=== PATIENT | male | born 1955 ===

== ENCOUNTER 2016-10-01 00:05 | Emergency (ER) | payer MEDICAID, OTHER ==
[2016-10-01 00:06] VITALS: BMI 19.8
[2016-10-01] MEDS ORDERED: Oxycodone/Acetaminophen 5/325 mg Tab PO STA (01:10)
[2016-10-01 01:11] VITALS: PULSE 66
--- NOTE | 2016-10-01 01:57 | C.PDOC ---
Time Seen by Provider: 10/01/16 01:17 Chief Complaint (Nursing): Dental Pain Past Medical History Vital Signs: Last Vital Signs Temp 98.0 F 10/01/16 01:06 Pulse 66 10/01/16 01:06 Resp 16 10/01/16 01:06 BP 144/84 10/01/16 01:06 Pulse Ox 98 10/01/16 01:06 - Medical History PMH: Asthma, Back Problems, COPD, Diabetes (type II), GERD, HIV (undetectable viral load), HTN, Hypercholesterolemia, Chronic Pain (neck/back) Denies: Chronic Kidney Disease Surgical History: Appendectomy, Hernia Repair (abdominal) Family History: States: Unknown Family Hx - Social History Hx Tobacco Use: Yes Hx Alcohol Use: No Hx Substance Use: No (cocaine) - Immunization History Hx Tetanus Toxoid Vaccination: No Hx Influenza Vaccination: Yes Hx Pneumococcal Vaccination: Yes ED Course And Treatment O2 Sat by Pulse Oximetry: 98 Disposition Counseled Patient/Family Regarding: Diagnosis, Need For Followup - Disposition Referrals: [facility] at [facility] [Outside] Disposition: HOME/ ROUTINE Disposition Time: 01:30 Condition: STABLE Instructions: Chronic Back Pain (ED) Print Language: SLOVAK - Clinical Impression Clinical Impression: Chronic back pain
--- NOTE | 2016-10-01 01:59 | C.PDOC ---
History Of Present Illness A 61 year old male presents to the emergency room with complaints of chronic lower back pain and a medication refill request. Patient has ran out of Xanax and Percocet. Patient's last dose was yesterday at 15:00. Patient also requests evaluation of an intermittent right upper toothache for the last few days. Patient denies any fever, chills, drooling, trismus, any recent dental work, abdominal pain, nausea, vomiting, or any other complaints. Time Seen by Provider: 10/01/16 01:17 Chief Complaint (Nursing): Dental Pain History Per: Patient History/Exam Limitations: no limitations Onset/Duration Of Symptoms: Days (1 day) Current Symptoms Are (Timing): Still Present Severity: Mild Quality: Positive for: "Pain" Recent travel outside of the [place]: No Past Medical History Reviewed: Historical Data, Nursing Documentation, Vital Signs Vital Signs: Last Vital Signs Temp 97.9 F 10/01/16 02:33 Pulse 66 10/01/16 02:33 Resp 20 10/01/16 02:33 BP 165/89 H 10/01/16 02:33 Pulse Ox 97 10/01/16 02:33 - Medical History PMH: Asthma, Back Problems, COPD, Diabetes (type II), GERD, HIV (undetectable viral load), HTN, Hypercholesterolemia, Chronic Pain (neck/back) Denies: Chronic Kidney Disease Surgical History: Appendectomy, Hernia Repair (abdominal) Family History: States: Unknown Family Hx - Social History Hx Tobacco Use: Yes Hx Alcohol Use: No Hx Substance Use: No (cocaine) - Immunization History Hx Tetanus Toxoid Vaccination: No Hx Influenza Vaccination: Yes Hx Pneumococcal Vaccination: Yes Review Of Systems Constitutional: Positive for: Other (Requesting medication refill for Xanax and Percocet. ). Negative for: Fever, Chills ENT: Positive for: Mouth Pain (Dental pain) Gastrointestinal: Negative for: Vomiting, Abdominal Pain, Diarrhea Musculoskeletal: Positive for: Back Pain (Chronic lower back pain) Physical Exam - Physical Exam Appears: Well, Non-toxic Skin: Normal Color, Warm, Dry Head: Atraumatic, Normacephalic Oral Mucosa: Moist, No Drooling, No Trismus Tongue: Normal Appearing, No Swelling, No Bleeding Lips: Normal Appearing, No Swelling Teeth: No Normal Dentition (Poor Dentition. Poor dental hygiene.), Caries ( Right upper caries cavity. ) Gingiva: Normal Appearing, No Swelling, No Bleeding, No Abscess (No evidence of tooth abscess) Back: Paraspinal Tenderness (Diffuse paraspinal lumbar tenderness) Neurological/Psych: Oriented x3, Normal Speech, Normal Motor, Normal Sensation ED Course And Treatment O2 Sat by Pulse Oximetry: 98 Medical Decision Making Medical Decision Making: Plan: -- Percocet Disposition - Disposition Referrals: [facility] at [facility] [Outside] Disposition: HOME/ ROUTINE Condition: GOOD Instructions: Chronic Back Pain (ED) Print Language: LAO - Clinical Impression Clinical Impression: Chronic back pain - Scribe Statement The provider has reviewed the documentation as recorded by the Scribe Shayne Correa All medical record entries made by the Nathanaelibjack were at my direction and personally dictated by me. I have reviewed the chart and agree that the record accurately reflects my personal performance of the history, physical exam, medical decision making, and the department course for this patient. I have also personally directed, reviewed, and agree with the discharge instructions and disposition.
[2016-10-01] MEDS ORDERED: Oxycodone/Acetaminophen 5/325 mg Tab ONE (02:17)
[2016-10-01 02:37] VITALS: BP 165/89; RESP 20; TEMP 97.9
[2016-10-01 03:13] VITALS: O2SAT 98
== END 2016-10-01 02:33 | disposition home or self-care (01) ==
LOC: C.ER 00:05
DX: G89.29 Other chronic pain (principal); M54.5 Low back pain

== ENCOUNTER 2016-10-16 22:40 | Emergency (ER) | payer MEDICAID, OTHER ==
[2016-10-16 22:40] VITALS: BMI 19.8
[2016-10-16 22:51] VITALS: BP 115/77; PULSE 86; TEMP 97.6; O2SAT 97
--- NOTE | 2016-10-16 23:15 | C.PDOC ---
History Of Present Illness Patient is a 61 year old male who presents to the ER c/o right neck pain that radiates to the jaw and shoulder for the past 3 days. Patient reports that he has HIV, diabetes, and diffuse chronic musculoskeletal pain and is taking Tramadol po PRN that is not helping him now. Patient states he cannot sleep and denies any neuro deficit, weakness, or numbness. Time Seen by Provider: 10/16/16 22:54 Chief Complaint (Nursing): Medical Clearance History Per: Patient History/Exam Limitations: no limitations Onset/Duration Of Symptoms: Days (3) Current Symptoms Are (Timing): Still Present Past Medical History Reviewed: Historical Data, Nursing Documentation, Vital Signs Vital Signs: Last Vital Signs Temp 97.6 F 10/16/16 22:48 Pulse 86 10/16/16 22:48 Resp 20 10/17/16 00:47 BP 115/77 10/16/16 22:48 Pulse Ox 97 10/17/16 03:39 - Medical History PMH: Asthma, Back Problems, COPD, Diabetes (type II), GERD, HIV (undetectable viral load), HTN, Hypercholesterolemia, Chronic Pain (neck/back) Surgical History: Appendectomy, Hernia Repair (abdominal) Family History: States: Unknown Family Hx - Social History Hx Tobacco Use: Yes Hx Alcohol Use: No Hx Substance Use: No (cocaine) - Immunization History Hx Tetanus Toxoid Vaccination: No Hx Influenza Vaccination: Yes Hx Pneumococcal Vaccination: Yes Review Of Systems Except As Marked, All Systems Reviewed And Found Negative. Constitutional: Negative for: Fever, Chills Cardiovascular: Negative for: Palpitations Respiratory: Negative for: Cough, Shortness of Breath Gastrointestinal: Negative for: Nausea, Vomiting, Diarrhea Musculoskeletal: Positive for: Neck Pain (Right sided) Neurological: Negative for: Weakness, Numbness Physical Exam - Physical Exam Appears: Well, Non-toxic Skin: Normal Color, Warm, Dry Head: Atraumatic, Normacephalic Oral Mucosa: Moist Neck: Other (Right lateral tenderness) Chest: Symmetrical Cardiovascular: Rhythm Regular Respiratory: Normal Breath Sounds, No Rales, No Rhonchi, No Wheezing Gastrointestinal/Abdominal: Soft, No Tenderness Neurological/Psych: Oriented x3, Normal Speech, Normal Cognition ED Course And Treatment O2 Sat by Pulse Oximetry: 97 (Room air) Pulse Ox Interpretation: Normal - Other Rad C-spine xray X-Ray: Interpreted by Me Interpretation: DJD, no acute abnormalities Progress Note: Percocet PO and toradol IM administered. Cervical spine x-ray ordered. Disposition - Disposition Referrals: Andriy Us MD [Medical Doctor] - Disposition: HOME/ ROUTINE Disposition Time: 00:06 Condition: STABLE Additional Instructions: Follow up with PMD within 1-2 days. Return to ED if feel worse. Prescriptions: oxyCODONE/Acetaminophen [Percocet 5/325 mg Tab] 1 tab PO QID PRN #20 tab PRN Reason: Pain Instructions: Muscle Spasm (ED) - Clinical Impression Clinical Impression: Cervical radiculopathy - Scribe Statement The provider has reviewed the documentation as recorded by the Scribe Marques Trivedi All medical record entries made by the Nathanaelibe were at my direction and personally dictated by me. I have reviewed the chart and agree that the record accurately reflects my personal performance of the history, physical exam, medical decision making, and the department course for this patient. I have also personally directed, reviewed, and agree with the discharge instructions and disposition.
[2016-10-17] MEDS ORDERED: Oxycodone/Acetaminophen 5/325 mg Tab PO STA (00:05)
[2016-10-17] MEDS ORDERED: Oxycodone/Acetaminophen 5/325 mg Tab ONE (00:12)
[2016-10-17 00:48] VITALS: RESP 20
--- NOTE | 2016-10-17 09:04 | RAD ---
PROCEDURE: Cervical Spine Radiographs. HISTORY: Pain COMPARISON: None. FINDINGS: BONES: Vertebral bodies are maintained height. The transverse processes and posterior elements appear intact. The atlantoaxial articulation and odontoid process appear intact. There is grade 1 retrolisthesis at C2-3, likely degenerative in origin. DISC SPACES: There is marked narrowing of the C5-6 intervertebral disc space with osteophytes noted about the disc space, consistent with degenerative disc disease. The remaining intervertebral disc spaces are maintained in height. SOFT TISSUES: Normal. No prevertebral soft tissue swelling. OTHER FINDINGS: None. IMPRESSION: Degenerative disc disease C5-6. Grade 1 retrolisthesis C2-3, likely degenerative in origin. No evidence of fracture.
== END 2016-10-17 00:47 | disposition home or self-care (01) ==
LOC: C.ER 22:40
DX: M54.12 Radiculopathy, cervical region (principal)
CPT/HCPCS: 72040; 96372; 99282; J1885

== ENCOUNTER 2016-11-08 20:03 | Emergency (ER) | payer MEDICAID, OTHER ==
[2016-11-08 20:03] VITALS: BMI 19.8
[2016-11-08 20:58] VITALS: BP 107/73; PULSE 70; RESP 20; TEMP 97.6; O2SAT 99
--- NOTE | 2016-11-08 21:32 | C.PDOC ---
Time Seen by Provider: 11/08/16 21:31 Chief Complaint (Nursing): Headache Past Medical History Vital Signs: Last Vital Signs Temp 97.6 F 11/08/16 20:53 Pulse 70 11/08/16 20:53 Resp 20 11/08/16 20:53 BP 107/73 11/08/16 20:53 Pulse Ox 99 11/08/16 20:53 - Medical History PMH: Asthma, Back Problems, COPD, Diabetes (type II), GERD, HIV (undetectable viral load), HTN, Hypercholesterolemia, Chronic Pain (neck/back) Denies: Chronic Kidney Disease Surgical History: Appendectomy, Hernia Repair (abdominal) Family History: States: Unknown Family Hx - Social History Hx Tobacco Use: Yes Hx Alcohol Use: No Hx Substance Use: No (cocaine) - Immunization History Hx Tetanus Toxoid Vaccination: No Hx Influenza Vaccination: Yes Hx Pneumococcal Vaccination: Yes ED Course And Treatment O2 Sat by Pulse Oximetry: 99 Disposition Counseled Patient/Family Regarding: Studies Performed, Diagnosis - Disposition Disposition Time: 21:32
== END 2016-11-08 22:40 | disposition left against medical advice (07) ==
LOC: C.ER 20:03
DX: R51 Headache (principal); Z02.9 Encounter for administrative examinations, unspecified

== ENCOUNTER 2016-11-09 13:44 | Emergency (ER) | payer OTHER ==
[2016-11-09 13:45] VITALS: BMI 19.8
[2016-11-09 13:55] VITALS: O2SAT 98
[2016-11-09] MEDS ORDERED: Sodium Chloride 0.9% 1,000 ML IV ONE (14:19)
--- NOTE | 2016-11-09 14:33 | C.PDOC ---
History Of Present Illness A 61 year old male presents to the ED c/o Abdominal discomfort and watery diarrhea that occurred this morning. He has no nausea or vomitng. Patient notes having a syncopal fall that occurred 2 days prior where he hit his head feeling dizzy. He was seen at [facility] and had a CT head, X-Ray of the neck, and they stapled his head wounds, but the patient then left AMA. Patient reports coming to [facility] ED yesterday because of neck pain but left before being seen. Patient denies fever, chills, vomiting, nausea, SOB, or any other complaints. Time Seen by Provider: 11/09/16 14:05 Chief Complaint (Nursing): Headache History Per: Patient History/Exam Limitations: other (Poor historian) Onset/Duration Of Symptoms: Hrs, Days Current Symptoms Are (Timing): Still Present Severity: Mild Quality: "Pain" Recent travel outside of the [place]: No Past Medical History Reviewed: Historical Data, Nursing Documentation, Vital Signs Vital Signs: Last Vital Signs Temp 97.7 F 11/09/16 16:00 Pulse 62 11/09/16 16:00 Resp 14 11/09/16 16:00 BP 132/73 11/09/16 16:00 Pulse Ox 98 11/09/16 16:00 - Medical History PMH: Asthma, Back Problems, COPD, Diabetes (type II), GERD, HIV (undetectable viral load), HTN, Hypercholesterolemia, Chronic Pain (neck/back) Denies: Chronic Kidney Disease Surgical History: Appendectomy, Hernia Repair (abdominal) Family History: States: Unknown Family Hx - Social History Hx Tobacco Use: Yes Hx Alcohol Use: No Hx Substance Use: No (cocaine) - Immunization History Hx Tetanus Toxoid Vaccination: No Hx Influenza Vaccination: Yes Hx Pneumococcal Vaccination: Yes Review Of Systems Except As Marked, All Systems Reviewed And Found Negative. Constitutional: Negative for: Fever, Chills Respiratory: Negative for: Shortness of Breath Gastrointestinal: Positive for: Abdominal Pain, Diarrhea (Watery ). Negative for: Nausea, Vomiting Musculoskeletal: Positive for: Neck Pain Neurological: Positive for: Headache. Negative for: Weakness, Numbness, Incoordination, Altered Mental Status Physical Exam - Physical Exam Appears: Non-toxic, No Acute Distress Skin: Warm, Dry Head: Tenderness, No Swelling, Laceration (at top of scalp, stapled closed. No surrounding erythema or tenderness. No hematoma), No Other Eye(s): right: Other (Cataracts of the right iris), left: Normal Inspection Oral Mucosa: Moist Neck: Normal ROM, No Decreased ROM, No Midline Cervical Tenderness, Paracervical Tenderness (bilaterally) Cardiovascular: Rhythm Regular, No Murmur Respiratory: Normal Breath Sounds, No Rales, No Rhonchi, No Wheezing Gastrointestinal/Abdominal: Soft, Tenderness (Diffuse tenderness), No Distention , No Guarding, No Rebound Extremity: Bilateral: Atraumatic Pulses: Left Carotid: Normal, Right Carotid: Normal Neurological/Psych: Oriented x3, Normal Speech, Normal Cognition, Normal Cranial Nerves, Normal Motor, Normal Sensation, Normal Reflexes ED Course And Treatment - Laboratory Results Result Diagrams: 11/09/16 14:30 11/09/16 14:30 Lab Interpretation: No Acute Changes ECG: Interpreted By Me ECG Rhythm: Sinus Rhythm (with diffuse low voltage, Q waves V1-2 ? age anteroseptal infarct) O2 Sat by Pulse Oximetry: 98 (Room air) Pulse Ox Interpretation: Normal Reevaluation Time: 16:34 Reassessment Condition: Improved (Patient feels better and is without complaints.) Medical Decision Making Medical Decision Making: Plans: -EKG -Blood labs -IV fluids -Urine labs -Reassess and disposition Disposition - Disposition Referrals: Lalitha Lemus MD [Resident] - Disposition: HOME/ ROUTINE Disposition Time: 16:35 Condition: IMPROVED Prescriptions: Ondansetron ODT [Zofran ODT] 1 odt PO QID PRN #10 odt PRN Reason: Nausea/Vomiting traMADol [Ultram] 50 mg PO TID PRN #10 tab PRN Reason: Pain, Severe (8-10) Instructions: Acute Diarrhea (ED), Musculoskeletal Pain (ED) Print Language: BERMUDIAN - Clinical Impression Clinical Impression: Diarrhea, Musculoskeletal pain - Scribe Statement The provider has reviewed the documentation as recorded by the Scribjack healy All medical record entries made by the Scribe were at my direction and personally dictated by me. I have reviewed the chart and agree that the record accurately reflects my personal performance of the history, physical exam, medical decision making, and the department course for this patient. I have also personally directed, reviewed, and agree with the discharge instructions and disposition.
[2016-11-09 14:40] LABS: BASO % 0.9 % (0.0-2.0); EOS % 0.7 % (0.0-4.0); LYMPH # 0.9 K/uL (1.0-4.3); LYMPH % 23.1 % (20.0-40.0); MEAN CELL VOLUME 89.1 fL (80.0-94.0); MEAN CORPUSCULAR HEMOGLOBIN 29.9 pg (27.0-31.0); MEAN CORPUSCULAR HGB CONC 33.5 g/dL (33.0-37.0); MEAN PLATELET VOLUME 8.2 fL (7.2-11.7); MONO # 0.4 K/uL (0.0-0.8); MONO % 9.7 % (0.0-10.0); RED CELL DISTRIBUTION WIDTH 13.4 % (11.5-14.5); WHITE BLOOD COUNT 3.7 K/uL (4.8-10.8)
[2016-11-09 15:07] LABS: CHLORIDE 102 mmol/L (98-107)
[2016-11-09 15:08] LABS: POTASSIUM 4.3 mmol/L (3.6-5.2); SODIUM 138 mmol/L (132-148)
[2016-11-09 15:10] LABS: ALB/GLOB RATIO 1.3 (1.0-2.1); AST/SGOT 34 U/L (17-59); BILIRUBIN,TOTAL 0.8 mg/dL (0.2-1.3); CARBON DIOXIDE 25 mmol/L (22-30); GFR AFRICAN-AMERICAN > 60; TOTAL PROTEIN 7.1 g/dL (6.3-8.3)
[2016-11-09 15:11] LABS: ALKALINE PHOSPHATASE 64 U/L (38-126); BLOOD UREA NITROGEN 22 mg/dL (9-20); CALCIUM 9.1 mg/dl (8.6-10.4); GLUCOSE,RANDOM 77 mg/dL (75-110)
[2016-11-09 15:20] LABS: ALT/SGPT 6 U/L (21-72)
[2016-11-09 15:33] LABS: RBC URINE 1 /hpf (0-3); URINE BILIRUBIN NEGATIVE (NEGATIVE); URINE BLOOD NEGATIVE (NEGATIVE); URINE COLOR Yellow (YELLOW); URINE GLUCOSE (UA) NORMAL (Normal); URINE KETONE NEGATIVE (NEGATIVE); URINE LEUKOCYTE ESTERASE NEG Leu/uL (Negative); URINE PROTEIN NEGATIVE (NEGATIVE); URINE UROBILINOGEN NORMAL mg/dL (0.2-1.0); WBC URINE < 1 /hpf (0-5)
[2016-11-09 16:00] VITALS: BP 132/73; PULSE 62; RESP 14; TEMP 97.7
--- NOTE | 2016-11-10 19:00 | CARD ---
APPROVED REPORT EKG Measurement Heart [id number] <Conclusion> Normal sinus rhythm Low voltage QRS Poor R wave progression. Cannot rule out Anteroseptal infarct, age undetermined Abnormal ECG
== END 2016-11-09 16:46 | disposition home or self-care (01) ==
LOC: C.ER 13:44
DX: R19.7 Diarrhea, unspecified (principal); M79.1 Myalgia
CPT/HCPCS: 80053; 81001; 85025; 93005; 96360; 99285; J7040

== ENCOUNTER 2016-11-29 13:27 | Emergency (ER) | payer MEDICAID, OTHER ==
[2016-11-29 13:27] VITALS: BMI 19.8
[2016-11-29 13:48] VITALS: RESP 18; TEMP 98.2
[2016-11-29] MEDS ORDERED: Bacitracin 500 Units/gm Oint Foilpak UD TOP ONE (14:14)
[2016-11-29] MEDS ORDERED: Bacitracin 500 Units/gm Oint Foilpak UD ONE (14:17)
--- NOTE | 2016-11-29 14:37 | C.PDOC ---
History Of Present Illness 61 yr old male presents to the ER for staple removal, placed 10 days ago. Patient is also requesting refill of Albuterol, Advair and perococet. Patient denies fever, vision changes, nausea, vomiting, neck pain, headache, weakness or numbness. Time Seen by Provider: 11/29/16 14:05 Chief Complaint (Nursing): Med Refill History Per: Patient History/Exam Limitations: no limitations Onset/Duration Of Symptoms: Days (10) Past Medical History Reviewed: Historical Data, Nursing Documentation, Vital Signs Vital Signs: Last Vital Signs Temp 98.2 F 11/29/16 13:45 Pulse 72 11/29/16 15:01 Resp 18 11/29/16 15:01 BP 102/62 11/29/16 15:01 Pulse Ox 97 11/29/16 18:05 - Medical History PMH: Asthma, Back Problems, COPD, Diabetes (type II), GERD, HIV (undetectable viral load), HTN, Hypercholesterolemia, Chronic Pain (neck/back) Surgical History: Appendectomy, Hernia Repair (abdominal) Family History: States: No Known Family Hx - Social History Hx Tobacco Use: Yes Hx Alcohol Use: No Hx Substance Use: No (cocaine) - Immunization History Hx Tetanus Toxoid Vaccination: No Hx Influenza Vaccination: Yes Hx Pneumococcal Vaccination: Yes Review Of Systems Except As Marked, All Systems Reviewed And Found Negative. Constitutional: Negative for: Fever Eyes: Negative for: Vision Change Gastrointestinal: Negative for: Nausea, Vomiting Musculoskeletal: Negative for: Neck Pain Neurological: Negative for: Weakness, Numbness, Headache Physical Exam - Physical Exam Appears: Well, Non-toxic, No Acute Distress Skin: Warm, Dry, No Rash Head: Atraumatic, Normacephalic, Other (Well healed wound to the parietal scalp , with kaci in place. No signs of infections. ) Eye(s): bilateral: Normal Inspection, PERRL, EOMI Oral Mucosa: Moist Neck: Normal, Normal ROM, No Supple Chest: Symmetrical, No Tenderness Cardiovascular: Rhythm Regular, No Murmur Respiratory: Normal Breath Sounds, No Rales, No Rhonchi, No Stridor, No Wheezing Extremity: Normal ROM, No Swelling Neurological/Psych: Oriented x3, Normal Speech, Normal Motor, Normal Sensation ED Course And Treatment O2 Sat by Pulse Oximetry: 97 Medical Decision Making Medical Decision Making: PLAN: * Tylenol PO NOTE" Kaci were removed by SHARA Bowman without difficulty and well tolerated by patient. BAcitracin and sterile dressing placed. The patient was instructed that as the [facility] pain policy we cannot refill narcotic pain medications and patient is aware. Disposition - Disposition Referrals: [facility] at [facility] [Outside] Disposition: HOME/ ROUTINE Disposition Time: 14:35 Condition: GOOD Additional Instructions: Follow up with the medical doctor within 1-2 days without fail. Return if worsened. Prescriptions: Albuterol HFA [Ventolin HFA 90 mcg/actuation (8 g)] 2 puff IH Q6 #1 inhaler Fluticasone/Salmeterol 500/50 [Advair Diskus] 1 dsk IH BID #100 puff Instructions: Acute Wound Care (ED) Print Language: NEPALESE - Clinical Impression Clinical Impression: Removal of suture, Review of medication, Medication refill - PA / WHITE WORK CLEANER / Resident Statement MD/DO has reviewed & agrees with the documentation as recorded. - Scribe Statement The provider has reviewed the documentation as recorded by the Scribe All medical record entries made by the Scribe were at my direction and personally dictated by me. I have reviewed the chart and agree that the record accurately reflects my personal performance of the history, physical exam, medical decision making, and the department course for this patient. I have also personally directed, reviewed, and agree with the discharge instructions and disposition.
[2016-11-29 15:02] VITALS: BP 102/62; PULSE 72
[2016-11-29 18:03] VITALS: O2SAT 97
== END 2016-11-29 15:05 | disposition home or self-care (01) ==
LOC: C.ER 13:27
DX: Z48.02 Encounter for removal of sutures (principal); Z76.0 Encounter for issue of repeat prescription

== ENCOUNTER 2017-12-26 13:52 | Emergency (ER) | payer MEDICAID, OTHER ==
[2017-12-26 13:53] VITALS: BMI 19.8
[2017-12-26 14:18] VITALS: BP 119/69; PULSE 67; RESP 20; TEMP 98.7; O2SAT 98
--- NOTE | 2017-12-26 14:52 | C.PDOC ---
History Of Present Illness 62 year old male, whose PMHx includes lower back pain and asthma, presents to the ED for evaluation of right-sided lower back pain that radiates down his right leg which developed over the past few days. Patient describes pain as aching, worse with movement. Similar sx in past and c/w " my usual lower back pain". Patient is also requesting a refill of Advair. Patient denies fever, chills, known trauma or injury, denies CP, SOB, dyspnea, palpitation, wheezing, cough, abdominal pain, UTI symptoms, urinary/bowel incontinence, extremity numbness/weakness, saddle anesthesia. Ambulate to Ed for evaluation, not in any apparent distress. Time Seen by Provider: 12/26/17 14:33 Chief Complaint (Nursing): Back Pain History Per: Patient History/Exam Limitations: clinical condition Onset/Duration Of Symptoms: Days Current Symptoms Are (Timing): Still Present Quality Of Discomfort: "Pain" Previous Symptoms: Back Pain Associated Symptoms: denies: Incontinence, New Weakness, New Numbness Additional History Per: Patient Past Medical History Reviewed: Historical Data, Nursing Documentation, Vital Signs Vital Signs: Last Vital Signs Temp 98.7 F 12/26/17 14:16 Pulse 67 12/26/17 14:16 Resp 20 12/26/17 14:16 BP 119/69 12/26/17 14:16 Pulse Ox 98 12/26/17 16:05 - Medical History PMH: Asthma, Back Problems, COPD, Diabetes (type II), GERD, HIV (undetectable viral load), HTN, Hypercholesterolemia, Chronic Pain (neck/back) Denies: Chronic Kidney Disease Surgical History: Appendectomy, Hernia Repair (abdominal) Family History: States: Unknown Family Hx - Social History Hx Tobacco Use: Yes Hx Alcohol Use: No Hx Substance Use: No (cocaine) - Immunization History Hx Tetanus Toxoid Vaccination: No Hx Influenza Vaccination: Yes Hx Pneumococcal Vaccination: Yes Review Of Systems Constitutional: Negative for: Fever, Chills Gastrointestinal: Negative for: Nausea, Vomiting Genitourinary: Negative for: Dysuria, Frequency, Hematuria Musculoskeletal: Positive for: Back Pain, Leg Pain (right) Neurological: Negative for: Weakness, Numbness Physical Exam - Physical Exam Appears: Well, Non-toxic, No Acute Distress Skin: Normal Color, Warm, Dry, No Rash Head: Normacephalic Eye(s): bilateral: PERRL Nose: No Discharge Oral Mucosa: Moist Neck: Trachea Midline, Supple Cardiovascular: Rhythm Regular, No Murmur Respiratory: No Decreased Breath Sounds, No Accessory Muscle Use, No Stridor, No Wheezing Gastrointestinal/Abdominal: Soft, No Tenderness, No Distention, No Guarding, No Rebound Back: No CVA Tenderness, Muscle Spasm (Right lumbar paraspinal), Paraspinal Tenderness (Right lumbar) Extremity: No Tenderness, No Calf Tenderness (B/L), No Deformity, No Swelling Neurological/Psych: Oriented x3, Normal Speech, Normal Motor, Normal Sensation, Normal Reflexes ED Course And Treatment O2 Sat by Pulse Oximetry: 98 (on RA) Pulse Ox Interpretation: Normal Progress Note: Motrin PO and Neurontin PO administered. On re-evaluation, pt is afebrile, hemodynamicaly stable. Non-toxic. Ambulatory in ED with stable gait. ENT: no acute findings. neck: Supple, (-) meningeal sign. Lungs: CTA B/ L, BS equal B/L. Abd: benign, (-) guarding, (-) rebound. back: (-) CVA tenderness. neurologicaly intact. Pt has clinical findings c/w Right lumbar radiculopathy. Hx of asthma, medication refill. pt advised. ref. to f/u with PMD in 2-3 days for re-eval. return to ED if any worsening or new changes. Disposition Counseled Patient/Family Regarding: Diagnosis, Need For Followup, Rx Given - Disposition Referrals: [facility] at [facility] [Outside] Disposition: HOME/ ROUTINE Disposition Time: 14:58 Condition: STABLE Additional Instructions: Light duty to lower back, avoid heavy lifting, bending , etc. Take medication as prescribed Follow up with PMD in 2-3 days for re-evaluation. return to ED if any worsening or new changes. Prescriptions: Fluticasone/Salmeterol 250/50 [Advair Diskus] 1 puff IH Q12 #1 puff Gabapentin [Neurontin] 300 mg PO BID #20 cap Methocarbamol [Robaxin] 500 mg PO TID #20 tab traMADol [Ultram] 50 mg PO TID #7 tab Instructions: Asthma, Adult (DC), Radiculopathy (DC) Forms: [employer] (Vietnamese) Print Language: DJIBOUTIAN - Clinical Impression Clinical Impression: Low back pain, Lumbar radiculopathy, Medication refill, Asthma - PA / CONTRACT ADMINISTRATIVE ASSISTANT / Resident Statement MD/DO has reviewed & agrees with the documentation as recorded. - Scribe Statement The provider has reviewed the documentation as recorded by the Scribe (Bren Muller) All medical record entries made by the Scribe were at my direction and personally dictated by me. I have reviewed the chart and agree that the record accurately reflects my personal performance of the history, physical exam, medical decision making, and the department course for this patient. I have also personally directed, reviewed, and agree with the discharge instructions and disposition.
== END 2017-12-26 15:06 | disposition home or self-care (01) ==
LOC: C.ER 13:52
DX: M54.16 Radiculopathy, lumbar region (principal); M54.5 Low back pain; Z76.0 Encounter for issue of repeat prescription; J45.909 Unspecified asthma, uncomplicated

== ENCOUNTER 2018-01-16 15:25 | Emergency (ER) | payer OTHER ==
[2018-01-16 15:25] VITALS: BMI 19.8
[2018-01-16 15:46] VITALS: BP 122/63; PULSE 78; RESP 16; TEMP 98; O2SAT 98
--- NOTE | 2018-01-16 15:57 | C.PDOC ---
History Of Present Illness 62 year old male, whose PMHx includes asthma and back problems, presents to the ED for evaluation of lower back pain that has been worsening over the last 3 days. Patient reports the pain began over one year ago, secondary to a fall. Patient is also requesting a refill for Advair. Patient states his pain is mild and denies new trauma, urinary/bowel incontinence, saddles anesthesia, extremity numbness/weakness, chest pain, shortness of breath and cough. Time Seen by Provider: 01/16/18 15:33 Chief Complaint (Nursing): Back Pain History Per: Patient History/Exam Limitations: no limitations Onset/Duration Of Symptoms: Days (3) Current Symptoms Are (Timing): Worse Quality Of Discomfort: "Pain" Previous Symptoms: Back Pain Associated Symptoms: denies: Incontinence, New Weakness, New Numbness Additional History Per: Patient Past Medical History Reviewed: Historical Data, Nursing Documentation, Vital Signs Vital Signs: Last Vital Signs Temp 98 F 01/16/18 15:40 Pulse 78 01/16/18 15:40 Resp 16 01/16/18 15:40 BP 122/63 01/16/18 15:40 Pulse Ox 98 01/16/18 16:16 - Medical History PMH: Asthma, Back Problems, COPD, Diabetes (type II), GERD, HIV (undetectable viral load), HTN, Hypercholesterolemia, Chronic Pain (neck/back) Denies: Chronic Kidney Disease Surgical History: Appendectomy, Hernia Repair (abdominal) Family History: States: Unknown Family Hx - Social History Hx Tobacco Use: Yes Hx Alcohol Use: No Hx Substance Use: No (cocaine) - Immunization History Hx Tetanus Toxoid Vaccination: No Hx Influenza Vaccination: Yes Hx Pneumococcal Vaccination: Yes Review Of Systems Cardiovascular: Negative for: Chest Pain Respiratory: Negative for: Cough, Shortness of Breath Genitourinary: Negative for: Incontinence Musculoskeletal: Positive for: Back Pain (lower) Neurological: Negative for: Weakness, Numbness, Other (saddle anesthesia ) Physical Exam - Physical Exam Appears: Non-toxic, No Acute Distress Skin: Normal Color, Warm, Dry Head: Atraumatic, Normacephalic Eye(s): bilateral: Normal Inspection Oral Mucosa: Moist Neck: Supple Chest: Symmetrical, No Deformity, No Tenderness Cardiovascular: Rhythm Regular, No Murmur Respiratory: Normal Breath Sounds, No Rales, No Rhonchi, No Wheezing Back: No Vertebral Tenderness, Paraspinal Tenderness (left-sided, lumbar ), Straight Leg Raising (positive, on left side ) Extremity: Normal ROM, Capillary Refill (less than 2 seconds ) Neurological/Psych: Oriented x3, Normal Speech, Normal Cognition, Normal Sensation Gait: Steady ED Course And Treatment O2 Sat by Pulse Oximetry: 98 (on RA) Pulse Ox Interpretation: Normal Medical Decision Making Medical Decision Making: Impression: 62 year old male with lower back pain Plan: * Toradol IM * reassess and disposition Progress: Toradol IM given. no new trauma. h/o of chroinc pain no indiication for emergent imaging. also med refill lungs cta. Disposition - Disposition Disposition: HOME/ ROUTINE Disposition Time: 04:00 Condition: STABLE Additional Instructions: please follow up with your doctor. return to er with worsening symptoms or concerns. Prescriptions: Cyclobenzaprine [Cyclobenzaprine HCl] 10 mg PO DAILY #10 tab Fluticasone/Salmeterol 250/50 [Advair Diskus] 1 dsk IH BID #1 puff Naproxen [Naprosyn] 500 mg PO BID PRN #14 tab PRN Reason: Pain, Mild (1-3) Instructions: COPD Including Emphysema (DC), Low Back Pain (DC) Forms: [employer] (Angolan) - Clinical Impression Clinical Impression: Medication refill, Low back pain - Scribe Statement The provider has reviewed the documentation as recorded by the Scribe (Bren Muller) Provider Attestation: All medical record entries made by the Scribe were at my direction and personally dictated by me. I have reviewed the chart and agree that the record accurately reflects my personal performance of the history, physical exam, medical decision making, and the department course for this patient. I have also personally directed, reviewed, and agree with the discharge instructions and disposition.
== END 2018-01-16 16:26 | disposition home or self-care (01) ==
LOC: C.ER 15:25
DX: M54.5 Low back pain (principal); Z76.0 Encounter for issue of repeat prescription
CPT/HCPCS: 96372; 99283; J1885

== ENCOUNTER 2018-02-26 16:00 | Emergency (ER) | payer MEDICAID, OTHER ==
[2018-02-26 16:00] VITALS: BMI 19.8
[2018-02-26 16:22] VITALS: TEMP 98.3
--- NOTE | 2018-02-26 17:23 | C.PDOC ---
History Of Present Illness 62 year old male patient presents to the ER with c/o chronic pain in left neck, shoulder and back. Patient says last few days it got worse. Patient denies decrease ROM. Patient request for refill of Advair. Time Seen by Provider: 02/26/18 17:22 Chief Complaint (Nursing): Back Pain History Per: Patient History/Exam Limitations: no limitations Onset/Duration Of Symptoms: Days Current Symptoms Are (Timing): Still Present Past Medical History Reviewed: Historical Data, Nursing Documentation, Vital Signs Vital Signs: Last Vital Signs Temp 98.3 F 02/26/18 16:18 Pulse 70 02/26/18 18:02 Resp 16 02/26/18 18:02 BP 117/72 02/26/18 18:02 Pulse Ox 99 02/26/18 20:40 - Medical History PMH: Asthma, Back Problems, COPD, Diabetes (type II), GERD, HIV (undetectable viral load), HTN, Hypercholesterolemia, Chronic Pain (neck/back) Surgical History: Appendectomy, Hernia Repair (abdominal) Family History: States: Unknown Family Hx - Social History Hx Tobacco Use: Yes Hx Alcohol Use: No Hx Substance Use: No (cocaine) - Immunization History Hx Tetanus Toxoid Vaccination: No Hx Influenza Vaccination: No Hx Pneumococcal Vaccination: Yes Review Of Systems Except As Marked, All Systems Reviewed And Found Negative. Musculoskeletal: Positive for: Neck Pain, Shoulder Pain, Back Pain. Negative for: Other (decreased ROM) Physical Exam - Physical Exam Appears: Well, Non-toxic, No Acute Distress Skin: Normal Color, Warm, Dry Head: Atraumatic, Normacephalic Eye(s): bilateral: Normal Inspection Neck: Normal ROM, Supple, Other (mild paraspinal and shoulder blade tenderness; no erythema; swelling ) Chest: Symmetrical, No Deformity Cardiovascular: Rhythm Regular Respiratory: Normal Breath Sounds Back: No CVA Tenderness Extremity: Normal ROM (x4) Neurological/Psych: Oriented x3, Normal Speech, Normal Cognition, Normal Motor, Normal Sensation, Normal Reflexes Gait: Steady ED Course And Treatment O2 Sat by Pulse Oximetry: 99 (RA) Pulse Ox Interpretation: Normal Progress Note: Impression: chronic left neck, shoulder, and back pain. Reassess : Patient is resting comfortably. Patient is in NAD. Patient is advised to f/u with PCP in 1-2 days. Disposition - Disposition Referrals: [facility] [Outside] Disposition: HOME/ ROUTINE Disposition Time: 17:46 Condition: STABLE Additional Instructions: Follow up with your PMD or in Medical Clinic downstairs within 2-3 days. Return to ED if feel worse. Prescriptions: Fluticasone/Salmeterol [Advair 250-50 Diskus] 1 each IH BID #1 blst.w.dev Cyclobenzaprine [Cyclobenzaprine HCl] 10 mg PO TID #15 tab Naproxen [Naprosyn] 1 tab PO BID PRN #25 tab PRN Reason: Pain Instructions: Low Back Pain in Adults, Asthma in Adults Forms: [employer] (Malay) Print Language: SAMOAN - Clinical Impression Clinical Impression: Medication refill, Low back pain - PA / LEAD SOFTWARE TEST ENGINEER / Resident Statement MD/DO has reviewed & agrees with the documentation as recorded. - Scribe Statement The provider has reviewed the documentation as recorded by the Theodora Whitt Do All medical record entries made by the Scribe were at my direction and personally dictated by me. I have reviewed the chart and agree that the record accurately reflects my personal performance of the history, physical exam, medical decision making, and the department course for this patient. I have also personally directed, reviewed, and agree with the discharge instructions and disposition.
[2018-02-26 18:03] VITALS: BP 117/72; PULSE 70; RESP 16
[2018-02-26 20:33] VITALS: O2SAT 99
== END 2018-02-26 18:02 | disposition home or self-care (01) ==
LOC: C.ER 16:00
DX: Z76.0 Encounter for issue of repeat prescription (principal); M54.5 Low back pain; E11.9 Type 2 diabetes mellitus without complications; E78.00 Pure hypercholesterolemia, unspecified; I10 Essential (primary) hypertension; Z72.0 Tobacco use

== ENCOUNTER 2018-04-08 11:34 | Emergency (ER) | payer MEDICAID, OTHER, SELFPAY ==
[2018-04-08 11:34] VITALS: BMI 19.8
[2018-04-08 11:58] VITALS: RESP 18; TEMP 98.4
[2018-04-08 13:13] VITALS: BP 110/71; PULSE 75; O2SAT 97
--- NOTE | 2018-04-08 17:00 | C.PDOC ---
History Of Present Illness 62 year old male presents to the emergency department requesting a refill for his medications. Patient reports that he has a PMD, and reports no complaints at this time. Time Seen by Provider: 04/08/18 12:06 Chief Complaint (Nursing): Med Refill History Per: Patient History/Exam Limitations: no limitations Past Medical History Reviewed: Historical Data, Nursing Documentation, Vital Signs Vital Signs: Last Vital Signs Temp 98.4 F 04/08/18 11:55 Pulse 75 04/08/18 13:12 Resp 18 04/08/18 13:12 BP 110/71 04/08/18 13:12 Pulse Ox 97 04/08/18 17:02 - Medical History PMH: Asthma, Back Problems, COPD, Diabetes (type II), GERD, HIV (undetectable viral load), HTN, Hypercholesterolemia, Chronic Pain (neck/back) Denies: Chronic Kidney Disease Surgical History: Appendectomy, Hernia Repair (abdominal) Family History: States: No Known Family Hx - Social History Hx Tobacco Use: Yes Hx Alcohol Use: No Hx Substance Use: No - Immunization History Hx Tetanus Toxoid Vaccination: No Hx Influenza Vaccination: No Hx Pneumococcal Vaccination: Yes Review Of Systems Except As Marked, All Systems Reviewed And Found Negative. Constitutional: Negative for: Fever, Chills Respiratory: Negative for: Cough Gastrointestinal: Negative for: Nausea, Vomiting Physical Exam - Physical Exam Appears: Non-toxic, No Acute Distress Skin: Warm, Dry Head: Atraumatic, Normacephalic Eye(s): bilateral: Normal Inspection Nose: Normal Oral Mucosa: Moist Neck: Normal, Supple Chest: Symmetrical, No Tenderness Cardiovascular: Rhythm Regular, No Murmur Respiratory: Normal Breath Sounds, No Rales, No Rhonchi, No Wheezing Extremity: Normal ROM (all extremities) Neurological/Psych: Oriented x3, Normal Speech, Normal Cognition ED Course And Treatment O2 Sat by Pulse Oximetry: 97 (RA) Pulse Ox Interpretation: Normal Progress Note: Plan: Patient prescribed one-week's worth of medication. Patient understood that he needs to follow-up with his PMD this week for outpatient medications. Disposition - Disposition Referrals: Anthony Jerry, [Non-Staff] - Disposition: HOME/ ROUTINE Disposition Time: 13:00 Condition: GOOD Additional Instructions: BETINA BUENROSTRO, thank you for letting us take care of you today. The emergency medical care you received today was directed at your acute symptoms. If you were prescribed any medication, please fill it and take as directed. It may take several days for your symptoms to resolve. Return to the Emergency Department if your symptoms worsen, do not improve, or if you have any other problems. Please contact your doctor or call one of the physicians/clinics you have been referred to that are listed on the Patient Visit Information form that is included in your discharge packet. Bring any paperwork you were given at discharge with you along with any medications you are taking to your follow up visit. Our treatment cannot replace ongoing medical care by a primary care provider outside of the emergency department. Thank you for allowing the [facility] team to be part of your care today. Please follow up with your primary care doctor in 2-3 days for re-evaluation. Please go to him/her for your outpatient medications. Prescriptions: Albuterol Sulfate [Ventolin Hfa] 2 puff IH Q4 PRN #1 unit PRN Reason: wheeze Fluticasone/Salmeterol 250/50 [Advair Diskus] 1 dsk IH BID #1 puff Gabapentin [Neurontin] 300 mg PO BID #14 cap metFORMIN [glucOPHAGE] 500 mg PO DAILY #7 tab Instructions: Medication Safety, Adult Forms: [employer] (Nepali) - Clinical Impression Clinical Impression: Encounter for medication refill - Scribe Statement The provider has reviewed the documentation as recorded by the Scribe (Sanket Funes) Provider Attestation: All medical record entries made by the Scribe were at my direction and personally dictated by me. I have reviewed the chart and agree that the record accurately reflects my personal performance of the history, physical exam, medical decision making, and the department course for this patient. I have also personally directed, reviewed, and agree with the discharge instructions and disposition.
== END 2018-04-08 13:13 | disposition home or self-care (01) ==
LOC: C.ER 11:34
DX: Z76.0 Encounter for issue of repeat prescription (principal)

== ENCOUNTER 2018-05-22 12:48 | Emergency (ER) | payer MEDICAID, SELFPAY ==
[2018-05-22 12:49] VITALS: BMI 19.8
[2018-05-22 13:20] VITALS: BP 146/75; PULSE 66; RESP 18; TEMP 98.4; O2SAT 99
--- NOTE | 2018-05-22 14:58 | C.PDOC ---
History Of Present Illness 62 year old male presents to the ED requesting refill for Prednisone, Gabapentin, Naproxen, and Advair. Patient states that he no longer has a PMD and is unable to identify the last time he took any of these medications. He does not state whether or not he has any current pulmonary issues. Patient advised through the grain elevator clerk that he will be prescribed Albuterol, not Prednisone, Gabapentin, Naproxen, or Advair because he needs to visit a clinic. No other medical complaints during ED visit. Patient walked out of the ED without a prescription. Information obtained via freelance translator Jamar #[id number] 62 y/o male presents to ed requesting refills of prednisone, gabapentin, naproxen and advair. pt sts he no longer has pmd. pt unable to say when he last took any of these medications. info obtained via uzbek transaltor Jamar, #[id number]. pt not stating he has any current pulmonary issues. pt advised via Jamar that I will write rx for albuterol (not prednisone or adviar) not gabapentin, . and needs to go to clinic for these medications and that I need to examine him first. Pt got off stretcher and walked out of ED without RX. Time Seen by Provider: 05/22/18 14:10 Chief Complaint (Nursing): Pain, Chronic History Per: Patient History/Exam Limitations: no limitations Past Medical History Reviewed: Historical Data, Nursing Documentation, Vital Signs Vital Signs: Last Vital Signs Temp 98.4 F 05/22/18 13:15 Pulse 66 05/22/18 13:15 Resp 18 05/22/18 13:15 BP 146/75 05/22/18 13:15 Pulse Ox 99 05/22/18 13:15 - Medical History PMH: Asthma, Back Problems, COPD, Diabetes (type II), GERD, HIV, HTN, Hypercholesterolemia, Chronic Pain (neck/back) Denies: Chronic Kidney Disease Surgical History: Appendectomy, Hernia Repair (abdominal) Family History: States: Unknown Family Hx - Social History Hx Tobacco Use: Yes Hx Alcohol Use: No Hx Substance Use: No - Immunization History Hx Tetanus Toxoid Vaccination: No Hx Influenza Vaccination: No Hx Pneumococcal Vaccination: Yes Review Of Systems Review Of Systems: ROS cannot be obtained secondary to pt's inabilty to answer questions. (patient left.) Physical Exam - Physical Exam Appears: Well, Non-toxic, No Acute Distress (No physical exam obtained. No signs of respiratory distress. Patient speaking full sentences. ) Additional Physical Exam Comments: No physical exam obtained. No signs of respiratory distress. Patient speaking full sentences. ED Course And Treatment O2 Sat by Pulse Oximetry: 99 (RA) Pulse Ox Interpretation: Normal Medical Decision Making Medical Decision Making: Patient left the ED after being told Prednisone, Gabapentin, Naproxen, and Advair was not going to be prescribed. Disposition - Disposition Disposition: ELOPEMENT - ER ONLY Disposition Time: 15:00 Condition: GOOD Forms: [employer] (Macanese) - Clinical Impression Clinical Impression: Medication refill, Eloped from emergency department - PA / STAFF ASSISTANT / Resident Statement MD/DO has reviewed & agrees with the documentation as recorded. - Scribe Statement The provider has reviewed the documentation as recorded by the Scribe (Stephany Stark) All medical record entries made by the Scribe were at my direction and personally dictated by me. I have reviewed the chart and agree that the record accurately reflects my personal performance of the history, physical exam, medical decision making, and the department course for this patient. I have also personally directed, reviewed, and agree with the discharge instructions and disposition.
== END 2018-05-22 15:00 | disposition left against medical advice (07) ==
LOC: C.ER 12:48
DX: Z76.0 Encounter for issue of repeat prescription (principal)